=== PATIENT | male | born 1935 | race Caucasian/White ===

== ENCOUNTER 2018-09-04 01:28 | Inpatient (IN) | payer OTHER, MEDICARE ==
[~2018-09-04] VITALS: Ht 182.9 cm; Wt 107.2 kg
[2018-09-04 01:45] LABS: Calcium, Ionized (POC) 1.04 mmol/L (1.10-1.46); Chloride (POC) 100 mmol/L (98-108); Creatinine (POC) 1.9 mg/dL (0.8-1.3); Glucose (ISTAT POC) 159 mg/dL (70-99); Hemoglobin (POC) 13.6 g/dL (13.5-17.5); Potassium (POC) 4.2 mmol/L (3.5-5.5); Sodium (POC) 133 mmol/L (135-148); Total CO2 (POC) 21 mmol/L (21-32)
[2018-09-04 01:55] LABS: Hematocrit 41.1 % (37.0-53.0); Hemoglobin 13.3 g/dL (13.5-17.5); Mean Corpuscular HGB 30.3 pg (26.0-34.0); Mean Corpuscular HGB Conc 32.4 g/dL (31.5-36.5); Mean Corpuscular Volume 94 fL (80-100); Mean Platelet Volume 9.7 fL (9.1-12.4); Platelet Count 192 K/mm3 (150-400); RDW Coefficient Variation 11.9 % (11.7-14.2); RDW Standard Deviation 40.9 fL (35.1-46.3); Red Blood Cell Count 4.39 M/mm3 (4.30-5.90); White Blood Cell Count 9.26 K/mm3 (4.00-11.30)
[2018-09-04] MEDS ORDERED: AMLO5 PO (02:06)
[2018-09-04] MEDS ORDERED: ATEN100 (02:07)
[2018-09-04] MEDS ORDERED: LORPSEER24 (02:07)
[2018-09-04] MEDS ORDERED: Ipratropium Bro30 ML NS (02:07)
[2018-09-04 02:14] LABS: Alanine Aminotransfer (ALT/SGP 21 U/L (12-78); Albumin, Blood 3.8 g/dL (3.4-5.0); Albumin/Globulin Ratio 1.1 (0.8-1.8); Alk Phos 84 U/L (50-136); Anion Gap 9 mmol/L (6-16); Aspartate Aminotrans (AST/SGOT 14 U/L (12-37); Bilirubin, Total 0.5 mg/dL (0.1-1.0); Blood Urea Nitrogen 29 mg/dL (8-24); CHOL/HDL RATIO 4.7; CO2, Blood 22 mmol/L (21-32); Calcium, Blood 8.5 mg/dL (8.5-10.1); Chloride, Blood 101 mmol/L (98-108); Cholesterol 146 mg/dL (50-200); Creatinine, Blood 1.81 mg/dL (0.60-1.20); Globulin, Blood 3.4 g/dL (2.2-4.0); Glomerular Filtration Rate 38 (60-); Glucose, Blood 154 mg/dL (70-99); HDL Cholesterol 31 mg/dL (>39); LDL/HDL RATIO 3.2; Low Density Lipoprotein Chol 100 mg/dL (0-110); Potassium, Blood 4.2 mmol/L (3.5-5.5); Sodium, Blood 132 mmol/L (136-145); Total Protein, Blood 7.2 g/dL (6.4-8.2); Triglycerides 75 mg/dL (30-160); Very Low Density Lipoprot Chol 15 mg/dL (6-32)
[2018-09-04 02:18] LABS: International Normalized Ratio 1.25; Prothrombin Time Results 12.7 Sec (9.7-11.5)
--- NOTE | 2018-09-04 05:52 | NUR ---
ADMIT: PT TRANSFERRED TO ICU 8 VIA BED WITH IABP PUMPING AT 1:1. PT IN AFIB WITH HR 80'S-90'S. AUGMENTED PRESSURES 90'S/50'S. 9 FR R FEMORAL ART LINE ACCESS FOR IABP. 6 FR R FEMORAL VENOUS ACCESS WITH DOPAMINE RUNING AT 20MCG/KG/MIN. 18G IV L FA WITH HEPARIN AT 18CC/HR=10.1UNITS/KG/HR. PT ALERT AND ORIENTED. DENIES ANY PAIN. LS CLEAR T/O WITH O2 AT 2L N/C WITH BIOX 96%. TR BAND TO R RADIAL INFLATED WITH 7CC OF AIR. FINGER TO R HAND ARE COOL TO TOUCH, BUT PT CAN FEEL THAT I'M TOUCHING HIM. ABD R/S WITH BTX4. PPP BUT FAINT. BROWN DISCOLORATION NOTED TO R LEG FROM KNEE DOWN.
[2018-09-04 09:04] LABS: Hematocrit 43.4 % (37.0-53.0); Hemoglobin 14.3 g/dL (13.5-17.5); Mean Corpuscular HGB 30.5 pg (26.0-34.0); Mean Corpuscular HGB Conc 32.9 g/dL (31.5-36.5); Mean Corpuscular Volume 93 fL (80-100); Mean Platelet Volume 9.5 fL (9.1-12.4); Platelet Count 225 K/mm3 (150-400); RDW Coefficient Variation 11.9 % (11.7-14.2); RDW Standard Deviation 40.5 fL (35.1-46.3); Red Blood Cell Count 4.69 M/mm3 (4.30-5.90); White Blood Cell Count 12.29 K/mm3 (4.00-11.30)
[2018-09-04 09:38] LABS: Anion Gap 11 mmol/L (6-16); Blood Urea Nitrogen 32 mg/dL (8-24); Bun/Creatinine Ratio 18.9 (12.0-20.0); CHOL/HDL RATIO 3.8; CO2, Blood 19 mmol/L (21-32); Calcium, Blood 8.2 mg/dL (8.5-10.1); Chloride, Blood 98 mmol/L (98-108); Cholesterol 145 mg/dL (50-200); Creatinine, Blood 1.69 mg/dL (0.60-1.20); Glomerular Filtration Rate 41 (60-); Glucose, Blood 210 mg/dL (70-99); HDL Cholesterol 38 mg/dL (>39); LDL/HDL RATIO 2.6; Low Density Lipoprotein Chol 100 mg/dL (0-110); Potassium, Blood 4.8 mmol/L (3.5-5.5); Sodium, Blood 128 mmol/L (136-145); Triglycerides 35 mg/dL (30-160); Very Low Density Lipoprot Chol 7 mg/dL (6-32)
--- NOTE | 2018-09-04 09:48 | NUR ---
0700-ASSUMED CARE OF PT. PT IS ALERT AND ORIENTED. DENIES PAIN AT THIS TIME. R RADIAL ACCESS SITE STILL HAS TR BAND INFLATED WITH 7CC AIR. R GROIN ACCESS SITE HAS A FEMORAL SHEATH F 9 CONNECTED TO THE BALLOON PUMP. VENOUS ACCESS TO R GROIN F 6 WHERE DOPAMINE IS INFUSING AT 20MCG/KG/MIN. R GROIN NOTED TO HAVE A SLIGHT SWELLING BUT SOFT TO TOUCH, NO HEMATOMA AND NO BLEEDING NOTED. PT IS ON HEPARIN DRIP @ 10.1 UNITS/KG/HR WITH DOSE WEIGHT OF 89 KG. REMINDED PT THAT HE HAS TO LAY FLAT UNTIL THEY PULL THE BALLOON PUMP. PT WILL BE TRANSFERING TO [facility]. R SHEA HAS SOME DISCOLORATION. LLE PETECHIA NOTED. FINGER TIPS ARE DUSKY. PT IS ON 2LPM NC. AFEBRILE. PT DENIES NUMBNESS AND TINGLING TO FINGERS. 0715-DEFLATED 2CC AIR FROM TR BAND. NO BLEEDING NOTED. PULSES ARE PALPABLE. 0800-DEFLATED ANOTHER 2 CC AIR FROM TR BAND AT R RADIAL. 0810-REPORT GIVEN TO JENSEN MARTINEZ AT [facility]. 0815-SLIGHT OOZE NOTED ON R RADIAL ACCESS. REINFLATED TR BAND TO 6CC AIR. 0822-REACH FLIGHT CREW ARE AT BEDSIDE. REPORT WAS GIVEN TO THEM. 0922-PT LEFT FOR [facility] AT THIS TIME. PT WILL BE IN 12K ROOM 19. UPDATED JENSEN MARTINEZ AT [facility] OF PT'S DEPARTURE AND THE TR BAND CONDITION.
== END 2018-09-04 09:28 | disposition short-term general hospital (02) | DRG 272 ==
LOC: ER 01:28 → ICUE 01:39 → ICUW 01:39 → ICUE 01:50
PROVIDERS: Emergency Medicine; ADMIT Emergency Medicine
PROC: 5A02210 Assistance with Cardiac Output using Balloon Pump, Continuous (ICD-10-PCS; principal; 2018-09-04)
PROC: 02703ZZ Dilation of Coronary Artery, One Artery, Percutaneous Approach (ICD-10-PCS; 2018-09-04)
PROC: 4A023N7 Measurement of Cardiac Sampling and Pressure, Left Heart, Percutaneous Approach (ICD-10-PCS; 2018-09-04)
PROC: B2111ZZ Fluoroscopy of Multiple Coronary Arteries using Low Osmolar Contrast (ICD-10-PCS; 2018-09-04)
PROC: B240ZZ3 Ultrasonography of Single Coronary Artery, Intravascular (ICD-10-PCS; 2018-09-04)
PROC: 3E073KZ Introduction of Other Diagnostic Substance into Coronary Artery, Percutaneous Approach (ICD-10-PCS; 2018-09-04)
DX: I21.02 ST elevation (STEMI) myocardial infarction involving left anterior descending coronary artery (principal); I48.2 Chronic atrial fibrillation; I13.10 Hypertensive heart and chronic kidney disease without heart failure, with stage 1 through stage 4 chronic kidney disease, or unspecified chronic kidney disease; N18.9 Chronic kidney disease, unspecified; Z87.891 Personal history of nicotine dependence; Z88.8 Allergy status to other drugs, medicaments and biological substances; Z79.899 Other long term (current) drug therapy; Z28.20 Immunization not carried out because of patient decision for unspecified reason
CPT/HCPCS: 33967; 36415; 80047; 80048; 80053; 80061; 83735; 84484; 85014; 85027; 85347; 85610; 85730; 86850; 86900; 86901; 92920; 92941; 92978; 93005; 93010; 93306; 93458; 99152; 99153; 99285-25; C1725; C1753; C1757; C1769; C1887; C1894; J0153; J0461; J1265; J1644; J2250; J2405; J3010; J3246; J3475; J7030; J7040; Q9967

== ENCOUNTER 2024-11-27 07:51 | Day surgery (SDC) | payer OTHER ==
[~2024-11-27] VITALS: Ht 180.3 cm; Wt 95.7 kg
[~2024-11-27 07:51] MED LIST: ALLO100 PO; AMLO5 PO; ARANESP INJ; ARTIFICIAL TEARS BOTHEYES; ATEN100; CALC.25 PO; Carvedilol12.5 MG PO; ELIQUIS2.5 MG PO; Ipratropium Bro30 ML NS; LORPSEER24; PRESERVISION AREDS PO
[2024-11-27 08:18] VITALS: BP 129/78
[2024-11-27] MEDS ORDERED: NS 250 ML IV ONE (09:41)
[2024-11-27] MEDS ORDERED: Heparin Sodium 1000 Units/ML 10ML MDV ONE (09:41)
[2024-11-27] MEDS ORDERED: Midazolam HCl 1MG / ML 2ML Vial ONE (10:56)
[2024-11-27] MEDS ORDERED: NS 500 ML IV ONE (10:56)
[2024-11-27] MEDS ORDERED: FentaNYL Citrate 50 MCG/ML 2 ML Injection ONE (10:57)
[2024-11-27] MEDS ORDERED: Heparin Sodium 10,000 Units/ML 1ML MDV ONE (11:10)
--- NOTE | 2024-11-27 11:58 | NUR ---
REPORT RECEIVED, RETURNS WITH STABLE VS AND NEW CATH TO RIGHT CHEST, DIALYSIS CATH LOCKED WITH HEPARIN X 2 PORTS, VSS, DENIES NEEDS, GIVEN COFFEE AND BREAKFAST SANDWICH, NO ACUTE NEEDS, D/C OTHERWISE PENDING. PLAN DIALYSIS SUNDAY.
[2024-11-27 12:00] VITALS: BP 138/69
[2024-11-27 12:15] VITALS: BP 141/68
--- NOTE | 2024-11-27 12:28 | NUR ---
NO CHANGES, PATIENT FINISHED EATING, CALL PLACED FOR RIDE, DRESSED, IV REMOVED, VS REMAINED STABLE, BELONGING RETURNED, RIDE ARRIVED AND PATIENT TAKEN BY WHEELCHAIR TO FRIEND VEHICLE AT
== END 2024-11-27 12:34 | disposition home or self-care (01) ==
LOC: MHTC 07:51
DX: I12.0 Hypertensive chronic kidney disease with stage 5 chronic kidney disease or end stage renal disease (principal); N18.6 End stage renal disease; I48.91 Unspecified atrial fibrillation; G47.33 Obstructive sleep apnea (adult) (pediatric); Z87.891 Personal history of nicotine dependence; Z88.8 Allergy status to other drugs, medicaments and biological substances; Z79.01 Long term (current) use of anticoagulants; Z79.899 Other long term (current) drug therapy
CPT/HCPCS: 36558; 76937; 77001; 99152; C1750; C1769; C1894; J1644; J2250; J3010; J7040; J7050

== ENCOUNTER 2025-03-26 06:25 | Day surgery (SDC) | payer OTHER ==
[~2025-03-26] VITALS: Ht 180.3 cm; Wt 98.0 kg
[~2025-03-26 06:25] MED LIST changes: +ARANESP25 MCG/0.1 INJ; +ARTIFICIAL TEAR15 M2 BOTHEYES
[2025-03-26 07:10] VITALS: BP 170/76
[2025-03-26] MEDS ORDERED: NS 1,000 ML IV ONE ×2 (07:23→07:44)
[2025-03-26] MEDS ORDERED: Heparin Sodium 1000 Units/ML 10ML MDV ONE (07:23)
[2025-03-26] MEDS ORDERED: Verapamil HCL 2.5 MG/ML 2ML Injection ONE (07:23)
[2025-03-26] MEDS ORDERED: Nitroglycerin 2 MG/20 ML BTL ONE (07:24)
[2025-03-26] MEDS ORDERED: Midazolam HCl 1MG / ML 2ML Vial ONE (07:44)
[2025-03-26] MEDS ORDERED: FentaNYL Citrate 50 MCG/ML 2 ML Injection ONE (07:44)
[2025-03-26 09:43] VITALS: BP 149/85
[2025-03-26 10:00] VITALS: BP 151/81
[2025-03-26 10:15] VITALS: BP 158/87
[2025-03-26 10:30] VITALS: BP 149/89
== END 2025-03-26 14:19 | disposition home or self-care (01) ==
LOC: MHTC 06:25
DX: I12.0 Hypertensive chronic kidney disease with stage 5 chronic kidney disease or end stage renal disease (principal); N18.6 End stage renal disease; I48.91 Unspecified atrial fibrillation; G47.33 Obstructive sleep apnea (adult) (pediatric); I73.9 Peripheral vascular disease, unspecified; M1A.9XX0 Chronic gout, unspecified, without tophus (tophi); Z79.01 Long term (current) use of anticoagulants; Z79.899 Other long term (current) drug therapy; Z88.8 Allergy status to other drugs, medicaments and biological substances; Z90.2 Acquired absence of lung [part of]; Z90.5 Acquired absence of kidney; Z99.2 Dependence on renal dialysis
CPT/HCPCS: 36836; 64415; 76937; 99152; 99153; C1725; C1769; C1889; C1894; J1644; J2250; J3010; J7030

== ENCOUNTER 2025-06-11 07:20 | Day surgery (SDC) | payer OTHER ==
[2025-06-11] VITALS (8 sets, daily range): BP systolic 111–138; BP diastolic 52–83
[~2025-06-11] VITALS: Ht 180.3 cm; Wt 93.4 kg
[~2025-06-11 07:20] MED LIST changes: +SEVEC800 PO
[2025-06-11] MEDS ORDERED: NS 1,000 ML IV ONE ×2 (07:50→07:59)
[2025-06-11] MEDS ORDERED: Verapamil HCL 2.5 MG/ML 2ML Injection ONE (07:50)
[2025-06-11] MEDS ORDERED: Heparin Sodium 1000 Units/ML 10ML MDV ONE (07:50)
[2025-06-11] MEDS ORDERED: Nitroglycerin 2 MG/20 ML BTL ONE (07:51)
[2025-06-11] MEDS ORDERED: FentaNYL Citrate 50 MCG/ML 2 ML Injection ONE (08:23)
[2025-06-11] MEDS ORDERED: Midazolam HCl 1MG / ML 2ML Vial ONE (08:23)
--- NOTE | 2025-06-11 09:15 | NUR ---
Pt back to recovery room after procedure. PT sitting up in recliner, alert and oriented. pt has TR band to left wrist and dressing to L AC. Fistula has good bruit and thrill. Pt given coffee and breakfast.
--- NOTE | 2025-06-11 10:30 | NUR ---
BEGAN DEFLATING TR BAND, 2CC OUT, PT BEGAN TO BLEED. 2CC REPLACED IN TR BAND.
--- NOTE | 2025-06-11 10:54 | NUR ---
BEGAN DEFLATING TR BAND AGAIN. 2CC AIR OUT, NO BLEEDING OR HEMATOMA NOTED.
--- NOTE | 2025-06-11 11:06 | NUR ---
TR BAND FULLY DEFLATED.
--- NOTE | 2025-06-11 12:07 | NUR ---
PT UP AND DRESSED, NO BLEEDING OR HEMATOMA NOTED TO L WRIST. TR BAND REMOVED AND CLOTH DOT APPLIED. IV D/C AND CATHETER INTACT. PT AND GRANDDAUGHTER EDUCATED ON D/C INSTRUCTIONS. PT WHEELED OUT OF DEPT. D/C INSTRUCTIONS IN GRAND DAUGHTERS HANDS WHILE WALKING OUT.
== END 2025-06-11 23:00 | disposition home or self-care (01) ==
LOC: MHTC 07:20
DX: T82.858A Stenosis of other vascular prosthetic devices, implants and grafts, initial encounter (principal); I12.0 Hypertensive chronic kidney disease with stage 5 chronic kidney disease or end stage renal disease; N18.6 End stage renal disease; I73.9 Peripheral vascular disease, unspecified; G47.33 Obstructive sleep apnea (adult) (pediatric); I48.91 Unspecified atrial fibrillation; M1A.0490 Idiopathic chronic gout, unspecified hand, without tophus (tophi); I25.2 Old myocardial infarction; I25.10 Atherosclerotic heart disease of native coronary artery without angina pectoris; Z85.528 Personal history of other malignant neoplasm of kidney; Z79.01 Long term (current) use of anticoagulants; Z79.899 Other long term (current) drug therapy; Z88.8 Allergy status to other drugs, medicaments and biological substances; Z90.5 Acquired absence of kidney; Z99.2 Dependence on renal dialysis; Y83.2 Surgical operation with anastomosis, bypass or graft as the cause of abnormal reaction of the patient, or of later complication, without mention of misadventure at the time of the procedure
CPT/HCPCS: 36902; 37607; 76937; 99152; 99153; C1725; C1769; C1887; C1894; J1644; J2250; J3010; J7030; Q9967

== ENCOUNTER 2025-07-26 13:19 | Emergency (ER) | payer OTHER ==
[~2025-07-26] VITALS: Ht 182.9 cm; Wt 86.2 kg
[2025-07-26 13:53] LABS: BASOPHILS ABSOLUTE AUTO 0.08 K/mm3 (0.00-0.23); BASOPHILS PERCENT AUTO 1 % (0-2); EOSINOPHILS ABSOLUTE AUTO 0.11 K/mm3 (0.00-0.68); EOSINOPHILS PERCENT AUTO 1 % (0-6); Hematocrit 36.1 % (37.0-53.0); Hemoglobin 11.9 g/dL (13.5-17.5); IMMATURE GRAN ABSOLUTE AUTO 0.05 K/mm3 (0.00-0.10); IMMATURE GRAN PERCENT AUTO 1 % (0-1); LYMPHOCYTES ABSOLUTE AUTO 1.62 K/mm3 (0.84-5.20); LYMPHOCYTES PERCENT AUTO 16 % (21-46); MONOCYTES ABSOLUTE AUTO 0.92 K/mm3 (0.16-1.47); MONOCYTES PERCENT AUTO 9 % (4-13); Mean Corpuscular HGB Conc 33.0 g/dL (31.5-36.5); Mean Corpuscular Volume 102 fL (80-100); NEUTROPHILS ABSOLUTE AUTO 7.65 K/mm3 (1.96-9.15); NEUTROPHILS PERCENT AUTO 73 % (41-73); NRBC ABSOLUTE 0.00 K/mm3 (0.00-0.02); NRBC Auto 0.0 /100 WBC (0.0-0.2); Platelet Count 192 K/mm3 (150-400); RDW Coefficient Variation 14.5 % (11.7-14.2); RDW Standard Deviation 53.9 fL (35.1-46.3)
[2025-07-26 14:13] LABS: Alanine Aminotransfer (ALT/SGP 20.0 U/L (12-78); Albumin, Blood 3.8 g/dL (3.4-5.0); Albumin/Globulin Ratio 1.0 (0.8-1.8); Anion Gap 14.0 mmol/L (3-11); Aspartate Aminotrans (AST/SGOT 23.0 U/L (12-37); Bilirubin, Total 1.2 mg/dL (0.1-1.0); Blood Urea Nitrogen 33.0 mg/dL (8-24); CO2, Blood 29.0 mmol/L (21-32); Calcium, Blood 10.7 mg/dL (8.5-10.1); Chloride, Blood 93.0 mmol/L (98-108); Creatinine, Blood 5.08 mg/dL (0.60-1.20); Globulin, Blood 3.7 g/dL (2.2-4.0); Glucose, Blood 129.0 mg/dL (70-99); Potassium, Blood 4.5 mmol/L (3.5-5.5); Sodium, Blood 131.0 mmol/L (136-145); Total Protein, Blood 7.5 g/dL (6.4-8.2)
[2025-07-26 15:45] VITALS: BP 171/86
== END 2025-07-26 16:00 | disposition home or self-care (01) ==
LOC: ER 13:19
PROVIDERS: Physician Assistant
DX: I50.9 Heart failure, unspecified (principal); Z88.8 Allergy status to other drugs, medicaments and biological substances; Z79.01 Long term (current) use of anticoagulants; Z79.899 Other long term (current) drug therapy; Z59.89 Other problems related to housing and economic circumstances
CPT/HCPCS: 71046; 80053; 83880; 84484; 85025; 93005; 93010; 99285-25

== ENCOUNTER 2025-07-27 18:08 | Inpatient (IN) | payer OTHER ==
[~2025-07-27] VITALS: Ht 182.9 cm; Wt 78.5 kg
[2025-07-27 18:45] LABS: BASOPHILS ABSOLUTE AUTO 0.07 K/mm3 (0.00-0.23); BASOPHILS PERCENT AUTO 1 % (0-2); EOSINOPHILS ABSOLUTE AUTO 0.03 K/mm3 (0.00-0.68); EOSINOPHILS PERCENT AUTO 0 % (0-6); Hematocrit 34.8 % (37.0-53.0); Hemoglobin 11.3 g/dL (13.5-17.5); IMMATURE GRAN ABSOLUTE AUTO 0.05 K/mm3 (0.00-0.10); IMMATURE GRAN PERCENT AUTO 1 % (0-1); LYMPHOCYTES ABSOLUTE AUTO 1.54 K/mm3 (0.84-5.20); LYMPHOCYTES PERCENT AUTO 18 % (21-46); MONOCYTES ABSOLUTE AUTO 1.08 K/mm3 (0.16-1.47); MONOCYTES PERCENT AUTO 12 % (4-13); Mean Corpuscular HGB Conc 32.5 g/dL (31.5-36.5); Mean Corpuscular Volume 103 fL (80-100); NEUTROPHILS ABSOLUTE AUTO 5.99 K/mm3 (1.96-9.15); NEUTROPHILS PERCENT AUTO 68 % (41-73); NRBC ABSOLUTE 0.00 K/mm3 (0.00-0.02); NRBC Auto 0.0 /100 WBC (0.0-0.2); Platelet Count 175 K/mm3 (150-400); RDW Coefficient Variation 14.8 % (11.7-14.2); RDW Standard Deviation 55.6 fL (35.1-46.3)
[2025-07-27 19:02] LABS: Alanine Aminotransfer (ALT/SGP 39.0 U/L (12-78); Albumin, Blood 3.4 g/dL (3.4-5.0); Albumin/Globulin Ratio 1.1 (0.8-1.8); Anion Gap 13.0 mmol/L (3-11); Aspartate Aminotrans (AST/SGOT 37.0 U/L (12-37); Bilirubin, Total 1.0 mg/dL (0.1-1.0); Blood Urea Nitrogen 19.0 mg/dL (8-24); CO2, Blood 26.0 mmol/L (21-32); Calcium, Blood 9.2 mg/dL (8.5-10.1); Chloride, Blood 99.0 mmol/L (98-108); Creatinine, Blood 3.14 mg/dL (0.60-1.20); Globulin, Blood 3.2 g/dL (2.2-4.0); Glucose, Blood 86.0 mg/dL (70-99); Potassium, Blood 4.0 mmol/L (3.5-5.5); Sodium, Blood 134.0 mmol/L (136-145); Total Protein, Blood 6.6 g/dL (6.4-8.2)
[2025-07-27 19:06] LABS: pH Blood Venous 7.45 (7.34-7.37)
[2025-07-27 19:25] LABS: CORONAVIRUS COVID-19 AG Negative (NEGATIVE)
[2025-07-27] MEDS ORDERED: FLU VACC TS2025-26(6MOS UP)/PF 45 MCG/0.5 ML SYRINGE IM SCH (20:50)
[2025-07-27] MEDS ORDERED: Labetalol HCL 5 MG/ML 4ML Injection (Single Dose) IV PRN (20:55)
[2025-07-27] MEDS ORDERED: Ondansetron HCl 2 MG / ML 2ML Vial IV PRN (20:55)
[2025-07-27 23:07] VITALS: BP 151/90
[2025-07-28] VITALS (20 sets, daily range): BP systolic 112–161; BP diastolic 63–89
[2025-07-28 04:43] LABS: Influenza A/2009-H1 Not Detected (NOT DETECT); SARS-Cov-2 (COVID-19), BioFire Not Detected (NOT DETECT)
--- NOTE | 2025-07-28 05:24 | NUR ---
SHIFT SUMMARY ADMIT EVENING 07/27/25 FOR ESRD NEEDING HD AND FLUID OVERLOAD. DR. DIANA CONSULTED BY ED PHYSICIAN. PT TO HAVE HD TODAY, LAST HAD FULL HD [facility]ESTERDAY PER [facility], BUT NOT ENOUGH FLUIDS TAKEN OFF. HAS HD PERMACATH IN R CHEST. 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 PT A&OX4, WALKS INDEPENDENTLY WITH CANE AND SBA. RWr IV UNFORTUNATELY PULLED BY PT IN SLEEP, REPLACED WITH 20g IV BY CAN RECONDITIONER IN KT 07/28. TOLERATING REGULAR DIET AND PO FLUIDS WELL. HAS LOW APPETITE CHRONICALLY. NEGATIVE RESPIRATORY PCR. COUGH NONPRODUCTIVE. DOES MAKE MINIMAL URINE, WEARS BRIEF.
[2025-07-28 06:38] LABS: Anion Gap 12.0 mmol/L (3-11); Blood Urea Nitrogen 27.0 mg/dL (8-24); CO2, Blood 28.0 mmol/L (21-32); Calcium, Blood 9.6 mg/dL (8.5-10.1); Chloride, Blood 96.0 mmol/L (98-108); Creatinine, Blood 3.91 mg/dL (0.60-1.20); Glucose, Blood 118.0 mg/dL (70-99); Magnesium, Blood 1.5 mg/dL (1.6-2.4); Potassium, Blood 3.9 mmol/L (3.5-5.5); Sodium, Blood 132.0 mmol/L (136-145)
--- NOTE | 2025-07-28 16:16 | NUR ---
PT DOING BETTER SINCE HE WAS ABLE TO HAVE DIALYSIS TODAY. AT THE START OF SHIFT PT'S LUNG SOUNDS WERE VERY LOUD JUST AT STANDING NEXT TO HIS BED. ONCE HE CAME BACK FROM DIALYSIS HE WAS BREATHING EASIER. PT DID REQUEST SOME O2 HE STILL STATES HE FEELS SOB. PT WAS A ONE PERSON ASSIST TO RESTROOM AND WAS ABLE TO MAKE ALL NEEDS KNOWN AND USES CALL LIGHT APPROPRIATELY. NO DISTRESS NOTED AND WILL CONTINUE TO MONITOR.
[2025-07-29] VITALS (20 sets, daily range): BP systolic 95–180; BP diastolic 59–94
[2025-07-29 05:11] LABS: Albumin, Blood 3.2 g/dL (3.4-5.0); Anion Gap 10 mmol/L (3-11); Blood Urea Nitrogen 19 mg/dL (8-24); CO2, Blood 32 mmol/L (21-32); Calcium, Blood 9.5 mg/dL (8.5-10.1); Chloride, Blood 96 mmol/L (98-108); Creatinine, Blood 3.38 mg/dL (0.60-1.20); Glucose, Blood 131 mg/dL (70-99); Phosphorus, Blood 3.3 mg/dL (2.5-4.9); Potassium, Blood 3.7 mmol/L (3.5-5.5); Sodium, Blood 134 mmol/L (136-145)
--- NOTE | 2025-07-29 05:34 | NUR ---
KAIAKO KURA KAUPAPA MAORI SUMMARY PT A&OX4, VSS. ABLE TO COMMUNICATE NEEDS APPROPRIATELY. PT HAS BEEN ASLEEP FOR MOST OF THE NIGHT. CHEST RISE/RESPIRATIONS NOTED. PALLIATIVE CONSULT PLACED FOR PT. PT EXPRESSED DESIRE TO STOP HD, NOT DURING THIS HOSPITALIZATION, BUT AT SOME POINT EVENTUALLY. PT STATED HE HAS STARTED TO HAVE THIS CONVERSATION W/ HIS CHILDREN WELL. REMAINS ON 1L NC FOR COMFORT. BED RAILS UP X 2, BED IN LOWEST POSITION, BED WHEELS LOCKED, PERSONAL BELONGINGS AND CALL LIGHT WITHIN REACH FOR SAFETY.
--- NOTE | 2025-07-29 15:16 | NUR ---
PT DISCHARGED FROM UNIT VIA WHEELCHAIR-[facility] TO TRANSPORT HOME. DC INSTRUCTIONS REVIEWED WITH PT AND SON, NO NEW PRESCRIPTIONS. FOLLOW UP APPTS TO BE SET UP BY PT WITHIN A WEEK. NO SOB OR PAIN AT TIME OF DISCHARGE. PT ALERT AND ORIENTED X3. PT HAS DIALYSIS TODAY BEFORE DC.
== END 2025-07-29 14:27 | disposition home or self-care (01) | DRG 291 ==
LOC: ER 18:08 → MEDS 18:09
PROVIDERS: Emergency Medicine; Nurse Practitioner Acute Care; Student in an Organized Health Care Education/Training Program; ADMIT Internal Medicine
PROC: 5A1D70Z Performance of Urinary Filtration, Intermittent, Less than 6 Hours Per Day (ICD-10-PCS; principal; 2025-07-28)
DX: I13.2 Hypertensive heart and chronic kidney disease with heart failure and with stage 5 chronic kidney disease, or end stage renal disease (principal); I50.23 Acute on chronic systolic (congestive) heart failure; N18.6 End stage renal disease; I48.20 Chronic atrial fibrillation, unspecified; I35.0 Nonrheumatic aortic (valve) stenosis; D63.1 Anemia in chronic kidney disease; I16.0 Hypertensive urgency; I77.810 Thoracic aortic ectasia; I27.20 Pulmonary hypertension, unspecified; G47.30 Sleep apnea, unspecified; I25.10 Atherosclerotic heart disease of native coronary artery without angina pectoris; Z99.2 Dependence on renal dialysis; Z79.01 Long term (current) use of anticoagulants; Z79.899 Other long term (current) drug therapy; Z88.8 Allergy status to other drugs, medicaments and biological substances
CPT/HCPCS: 0202U; 36415; 71045; 80048; 80053; 80069; 82803; 83735; 83880; 84484; 85025; 87428-QW; 93005; 93010; 93306; 99285-25; A9270; G0378

== ENCOUNTER 2025-07-30 07:13 | Day surgery (SDC) | payer OTHER ==
[~2025-07-30] VITALS: Ht 182.9 cm; Wt 86.2 kg
[2025-07-30] VITALS (10 sets, daily range): BP systolic 109–171; BP diastolic 67–95
[2025-07-30] MEDS ORDERED: NS 2,000 ML IV ONE (08:01)
[2025-07-30] MEDS ORDERED: Nitroglycerin 2 MG/20 ML BTL ONE (08:01)
[2025-07-30] MEDS ORDERED: Verapamil HCL 2.5 MG/ML 2ML Injection ONE (08:01)
[2025-07-30] MEDS ORDERED: Heparin Sodium 1000 Units/ML 10ML MDV ONE (08:01)
[2025-07-30 08:18] LABS: Prothrombin Time Results 13.5 Sec (9.7-11.5)
[2025-07-30] MEDS ORDERED: Midazolam HCl 1MG / ML 2ML Vial ONE (08:20)
[2025-07-30] MEDS ORDERED: FentaNYL Citrate 50 MCG/ML 2 ML Injection ONE (08:20)
--- NOTE | 2025-07-30 09:47 | NUR ---
PT BACK TO RECOVERY ROOM. PT SLEEPING, AWAKES WITH VERBAL STIMULATION. TR BAND TO L WRIST WITH 11CC OF AIR. NO BLEEDING OR HEMATOMA NOTED. GOOD BRUIT AND THRILL TO L FISTULA.
--- NOTE | 2025-07-30 12:55 | NUR ---
PATIENT AWAKE AND ALERT, DENIES COMPLAINTS. EARLIER IN RECOVERY PT DID C/O PAIN TO LEFT AC AREA WHEN ARM LIFTED, DR LAIRD AT BEDSIDE TO EVALUATE; NO CONCERNS, NO NEW ORDERS. PATIENT NOW DENIES PAIN TO THAT AREA. PATIENT HAS TOLERATED TWO CUPS OF TEA. LEFT TR BAND SITE: TR BAND DEFLATED FROM 1005 TO 1040, AREA STABLE/WNL W/O HEMATOMA, SWELLING, TENDERNESS, OR PAIN. TR BAND REMOVED ONE HOUR LATER AND DRESSING PLACED. PATIENT TO RETURN AGAIN FOR AN ADDITIONAL PROCEDURE TO HIS AV FISTULA. AV FISTULA HAS GOOD THRILL AND BRUIT. VSS.
--- NOTE | 2025-07-30 13:34 | NUR ---
LEFT RADIAL SITE AND LEFT AC/FISTULA SITE REMAINED STABLE/WNL. PATIENT SON AT BEDSIDE, VERBAL AND WRITTEN DISCHARGE INSTRUCTIONS GIVEN TO PATIENT AND PT'S SON WITH CLEAR UNDERSTANDING. PATIENT DC'D HOME IN STABLE CONDITION AT 1320. PATIENT ESCORTED OUT TO CAR VIA WHEELCHAIR, PT'S SON IS BI DATA ARCHITECT.
== END 2025-07-30 23:00 | disposition home or self-care (01) ==
LOC: MHTC 07:13
PROVIDERS: Radiology Diagnostic Radiology
DX: T82.898D Other specified complication of vascular prosthetic devices, implants and grafts, subsequent encounter (principal); N18.6 End stage renal disease; I12.0 Hypertensive chronic kidney disease with stage 5 chronic kidney disease or end stage renal disease; I73.9 Peripheral vascular disease, unspecified; Z88.8 Allergy status to other drugs, medicaments and biological substances; Z79.899 Other long term (current) drug therapy
CPT/HCPCS: 76937; 85610; 99152; 99153; C1725; C1769; C1887; C1894; J1644; J2250; J3010; J7030; Q9967